=== PATIENT | female | born 1970 | race Hispanic/Latino ===

== ENCOUNTER 2025-08-08 23:51 | Emergency (ER) | payer SELFPAY ==
[2025-08-09 01:23] LABS: #Basophils 0.11 10x3/uL (0.0-0.2); #Eosinophils 0.16 10x3/uL (0.0-0.7); #Monocytes 0.41 10x3/uL (0.11-0.59); #Neutrophils 4.12 10x3/uL (1.40-6.50); %Basophils 1.9 % (0.0-1.0); %Eosinophils 2.8 % (0.0-10.0); %Lymphocytes 16.3 % (21.0-51.0); %Monocytes 7.1 % (0.0-10.0); %Neutrophils 71.6 % (42.0-75.0); Hematocrit 43.0 % (36.0-47.0); Hemoglobin 14.7 g/dL (12.0-16.0); Mean Corpuscular Hemoglobin 28.3 pg (27.0-31.0); Mean Corpuscular Volume 82.9 fL (78.0-98.0); Platelet Count 248 10x3/uL (130-400); Red Blood Cell (RBC) Count 5.19 mill/uL (4.20-5.40); White Blood Cell (WBC) Count 5.76 10x3/uL (4.8-10.8)
[2025-08-09] MEDS ORDERED: hydrALAZINE 20 MG/ML VIAL ONE ×2 (01:46→02:43)
[2025-08-09 02:31] LABS: Albumin 4.3 g/dL (3.1-4.5); Calcium 9.4 mg/dL (7.8-10.44); Chloride 109 mmol/L (98-107); Potassium 4.0 mmol/L (3.5-5.1); Sodium 141 mmol/L (136-145)
[2025-08-09 02:32] LABS: Globulin 2.9 g/dL (2.4-3.5); Glucose 153 mg/dL (70-105)
[2025-08-09 02:33] LABS: Anion Gap 17 mmol/L (10-20); Carbon Dioxide 19 mmol/L (22-29)
[2025-08-09 02:35] LABS: Alkaline Phosphatase 106 U/L (40-110); Bilirubin, Total 0.6 mg/dL (0.3-1.2)
[2025-08-09 02:36] LABS: BUN (Urea Nitrogen) 16 mg/dL (9.8-20.1); Calc. Creatinine Clearance 0 mL/min (70-130)
[2025-08-09 02:38] LABS: ALT (SGPT) 127 U/L (Less than 34); AST (SGOT) 51 U/L (11-34)
== END 2025-08-09 03:38 | disposition home or self-care (01) ==
LOC: ERS 23:51
DX: I10 Essential (primary) hypertension (principal); E11.9 Type 2 diabetes mellitus without complications; Z79.84 Long term (current) use of oral hypoglycemic drugs
CPT/HCPCS: 36415; 80053; 84484; 85025; 93005; 96374; J0360